=== PATIENT | female | born 1995 | race African-American/Black ===

== ENCOUNTER 2016-08-20 12:28 | Emergency (ER) | payer OTHER ==
[2016-08-20 12:35] VITALS: RESP 16
--- NOTE | 2016-08-20 13:53 | EDPHY ---
H & P Time Seen by Provider: 08/20/16 13:25 HPI/ROS: Chief complaint. Abdominal pain HPI. 21-year-old female with abdominal pain for 5 days. Off and on. Sometimes upper abdomen and sometimes lower abdomen. The upper abdomen is midline described as dull. Low abdomen is cramping with occasional vaginal spotting. Last menstrual. 2 weeks ago. She has had some nausea vomiting and diarrhea. No upper respiratory symptoms. No chest discomfort, shortness of breath, fever. No urinary symptoms. Some headache ROS Constitutional. no fever/chills, no weakness Eyes. no problems with vision ENT. no sore throat, no nasal drainage Cardiovascular. no chest pain Respiratory. no shortness of breath, no cough Abdominal. Abdominal pain with nausea vomiting diarrhea . no problems urinating MS. no calf pain/swelling, no neck/back pain, no joint pain Skin. no rash Lymph. no swollen glands Neuro. no headache, no dizziness, no difficulty walking or with speech Past Medical/Surgical History: Kidney infection Social History: Single, nonsmoker, no alcohol Smoking Status: Never smoked Physical Exam: General Appearance: Alert well-developed female mild distress vital signs stable Eyes: Pupils equal and round no pallor or injection. ENT, Mouth: Mucous membranes are moist. Respiratory: There are no retractions, lungs are clear to auscultation. Cardiovascular: Regular rate and rhythm. Gastrointestinal: Abdomen is soft and nontender, no masses, bowel sounds normal. Neurological: Awake and alert, sensory and motor exams grossly normal. Skin: Warm and dry, no rashes. Musculoskeletal: Neck is supple nontender. Extremities symmetrical, full range of motion. Psychiatric: Patient is oriented X 3, there is no agitation. Constitutional: Initial Vital Signs Temperature (C) 36.6 C 08/20/16 12:33 Heart Rate 94 08/20/16 12:33 Respiratory Rate 16 08/20/16 12:33 Blood Pressure 128/77 H 08/20/16 12:33 O2 Sat (%) 96 08/20/16 12:33 O2 Delivery Mode Room Air Allergies/Adverse Reactions: evans Allergy (Verified 08/20/16 12:32) papaya Allergy (Verified 08/20/16 12:32) peach Allergy (Verified 08/20/16 12:32) Home Medications: Medication Instructions Recorded Cephalexin [Keflex (*)] 500 mg PO TID #21 cap 08/20/16 Medical Decision Making - Diagnostics Imaging Results: Imaging Impressions Pelvic/Renal Ultrasound 08/20/16 14:01 Impression: Prominent adnexal veins, which can be seen with pelvic congestion syndrome. Otherwise, unremarkable ultrasound of the pelvis. Results called and discussed with Dr. Steven Gilliland on August 20, 2016 at 1532 hours. Ultrasound reviewed by me and discussed with Dr. Biswas shows a normal pelvic ultrasound. There is some dilation of the pelvic vascular that would be consistent with pelvic congestion syndrome One-view upright KUB shows no evidence of free air or air-fluid levels or significant constipation Procedures: IV normal saline ED Course/Re-evaluation: Re-evaluation 4:15 p.m.--patient is stable she and I discussed lab imaging study results. We discussed treatment plan including criteria for return importance of follow-up further evaluation. She expresses understanding and agreement Differential Diagnosis: Considered , ectopic , urinary tract infection, pancreatitis, gastroenteritis - Data Points Laboratory Results: Laboratory Results 08/20/16 13:20 08/20/16 13:20 08/20/16 08/20/16 08/20/16 13:20 13:20 13:20 WBC RBC Hgb Hct MCV MCH MCHC RDW Plt Count MPV Neut % (Auto) Lymph % (Auto) [place] % (Auto) Eos % (Auto) Baso % (Auto) Nucleat RBC Rel Count Absolute Neuts (auto) Absolute Lymphs (auto) Absolute Monos (auto) Absolute Eos (auto) Absolute Basos (auto) Absolute Nucleated RBC Immature Gran % Immature Gran # Sodium 142 mEq/L mEq/L (134-144) Potassium 3.5 mEq/L mEq/L (3.5-5.2) Chloride 107 mEq/L mEq/L (97-110) Carbon Dioxide 20 mEq/l L mEq/l (22-31) Anion Gap 15 mEq/L mEq/L (8-16) BUN 17 mg/dL mg/dL (7-23) Creatinine 0.9 mg/dL mg/dL (0.6-1.0) Estimated GFR > 60 Glucose 91 mg/dL mg/dL (70-100) Calcium 10.3 mg/dL mg/dL (8.5-10.4) Lipase 69.0 IU/L IU/L (23-300) Beta HCG, Qual NEGATIVE Urine Color YELLOW Urine Appearance CLEAR Urine pH 6.0 (5.0-7.5) Ur Specific [place] 1.018 (1.002-1.030) Urine Protein NEGATIVE (NEGATIVE) Urine Ketones 1+ H (NEGATIVE) Urine Blood 2+ H (NEGATIVE) Urine Nitrate NEGATIVE (NEGATIVE) Urine Bilirubin NEGATIVE (NEGATIVE) Urine Urobilinogen NEGATIVE EU EU (0.2-1.0) Ur Leukocyte Esterase NEGATIVE (NEGATIVE) Urine RBC 3-5 /hpf H /hpf (0-3) Urine WBC 5-10 /hpf H /hpf (0-3) Ur Epithelial Cells TRACE /lpf /lpf (NONE-1+) Urine Mucus TRACE /lpf /lpf (NONE-1+) Urine Glucose NEGATIVE (NEGATIVE) 08/20/16 13:20 WBC 8.81 10^3/uL 10^3/uL (3.80-9.50) RBC 4.40 10^6/uL 10^6/uL (4.18-5.33) Hgb 13.2 g/dL g/dL (12.6-16.3) Hct 39.3 % % (38.0-47.0) MCV 89.3 fL fL (81.5-99.8) MCH 30.0 pg pg (27.9-34.1) MCHC 33.6 g/dL g/dL (32.4-36.7) RDW 13.2 % % (11.5-15.2) Plt Count 327 10^3/uL 10^3/uL (150-400) MPV 10.1 fL fL (8.7-11.7) Neut % (Auto) 66.3 % % (39.3-74.2) Lymph % (Auto) 26.7 % % (15.0-45.0) [place] % (Auto) 5.9 % % (4.5-13.0) Eos % (Auto) 0.3 % L % (0.6-7.6) Baso % (Auto) 0.5 % % (0.3-1.7) Nucleat RBC Rel Count 0.0 % % (0.0-0.2) Absolute Neuts (auto) 5.84 10^3/uL 10^3/uL (1.70-6.50) Absolute Lymphs (auto) 2.35 10^3/uL 10^3/uL (1.00-3.00) Absolute Monos (auto) 0.52 10^3/uL 10^3/uL (0.30-0.80) Absolute Eos (auto) 0.03 10^3/uL 10^3/uL (0.03-0.40) Absolute Basos (auto) 0.04 10^3/uL 10^3/uL (0.02-0.10) Absolute Nucleated RBC 0.00 10^3/uL 10^3/uL (0-0.01) Immature Gran % 0.3 % % (0.0-1.1) Immature Gran # 0.03 10^3/uL 10^3/uL (0.00-0.10) Sodium Potassium Chloride Carbon Dioxide Anion Gap BUN Creatinine Estimated GFR Glucose Calcium Lipase Beta HCG, Qual Urine Color Urine Appearance Urine pH Ur Specific [place] Urine Protein Urine Ketones Urine Blood Urine Nitrate Urine Bilirubin Urine Urobilinogen Ur Leukocyte Esterase Urine RBC Urine WBC Ur Epithelial Cells Urine Mucus Urine Glucose Medications Given: Discontinued Medications Al Hydroxide/Mg Hydroxide (Maalox Susp) 30 ml PO ONCE ONE Stop: 08/20/16 14:03 Last Admin: 08/20/16 14:51 Dose: 30 ml Hyoscyamine Sulfate (Levsin, Hyomax-Sl) 0.25 mg PO ONCE ONE Stop: 08/20/16 14:03 Last Admin: 08/20/16 14:51 Dose: 0.25 mg Sodium Chloride (Ns) 1,000 mls @ 0 mls/hr IV ONCE ONE PRN Reason: Wide Open Stop: 08/20/16 14:02 Last Admin: 08/20/16 14:50 Dose: 1,000 mls Lidocaine (Lidocaine 2% Viscous) 15 ml PO ONCE ONE Stop: 08/20/16 14:03 Last Admin: 08/20/16 14:51 Dose: 15 ml Departure - Departure Disposition: Home, Routine, Self-Care Clinical Impression: Urinary tract infection Qualifiers: Urinary tract infection type: acute cystitis Hematuria presence: with hematuria Qualified Code(s): N30.01 - Acute cystitis with hematuria Condition: Good Instructions: Urinary Tract Infection in Women (ED) Additional Instructions: Drink plenty of fluids and stay hydrated. Cephalexin as antibiotic. Return for fever, vomiting, flank pain. Recheck in 2 days if not improving Referrals: NONE *PRIMARY CARE P,. [Primary Care Provider] - As per Instructions [facility] [Outside] - 2-3 days, if not improved Prescriptions: Cephalexin [Keflex (*)] 500 mg PO TID #21 cap
[2016-08-20] MEDS ORDERED: NS 1,000 ML IV ONE (14:01)
[2016-08-20] MEDS ORDERED: LIDOCAINE 2% VISCOUS 15 ML UDCUP PO ONE (14:02)
[2016-08-20] MEDS ORDERED: HYOSCYAMINE SULFATE 0.125 MG TAB PO ONE (14:02)
[2016-08-20] MEDS ORDERED: MAG HYDROX/AL HYDROX/SIMETH 30 ML UDCUP PO ONE (14:02)
[2016-08-20 14:09] LABS: % IMMATURE GRANULYOCYTES 0.3 % (0.0-1.1); ABSOLUTE IMMATURE GRANULOCYTES 0.03 10^3/uL (0.00-0.10); ADD DIFF? NO; ADD MORPH? NO; ADD SCAN? NO; ATYPICAL LYMPHOCYTE FLAG 20 (0-99); FRAGMENT RBC FLAG 0 (0-99); HEMATOCRIT 39.3 % (38.0-47.0); HEMOGLOBIN 13.2 g/dL (12.6-16.3); LEFT SHIFT FLG 0 (0-99); LIPEMIA HEMOLYSIS FLAG 80 (0-99); MEAN CELL HEMOGLOBIN CONCENTR. 33.6 g/dL (32.4-36.7); MEAN CELL VOLUME 89.3 fL (81.5-99.8); MEAN PLATELET VOLUME 10.1 fL (8.7-11.7); PLATELET CLUMPS FLAG 0 (0-99); PLATELET COUNT 327 10^3/uL (150-400); RED CELL DISTRIBUTION WIDTH 13.2 % (11.5-15.2)
[2016-08-20 14:16] LABS: ANION GAP 15 mEq/L (8-16); CALCIUM 10.3 mg/dL (8.5-10.4); CARBON DIOXIDE 20 mEq/l (22-31); CHLORIDE 107 mEq/L (97-110); CREATININE 0.9 mg/dL (0.6-1.0); GLOMERULAR FILTRATION RATE > 60; GLUCOSE 91 mg/dL (70-100); POTASSIUM 3.5 mEq/L (3.5-5.2); SODIUM 142 mEq/L (134-144)
[2016-08-20 14:18] LABS: COLOR YELLOW; LEUKOCYTE ESTERASE,URINE NEGATIVE (NEGATIVE); NITRITE,URINE NEGATIVE (NEGATIVE)
[2016-08-20 14:25] LABS: MUCUS TRACE /lpf (NONE-1+)
[2016-08-20 17:11] VITALS: BP 121/83; PULSE 79; TEMP 98.4; O2SAT 97
== END 2016-08-20 17:09 | disposition home or self-care (01) ==
DX: N30.01 Acute cystitis with hematuria (principal); B96.89 Other specified bacterial agents as the cause of diseases classified elsewhere